=== PATIENT | male | born 2000 | race Caucasian/White ===

== ENCOUNTER 2022-10-17 14:03 | Emergency (ER) | payer OTHER ==
[~2022-10-17] VITALS: Ht 190.5 cm; Wt 95.3 kg
[2022-10-17] MEDS ORDERED: LIDOCAINE 1% INJ 20 ML VIAL INJ ONE (14:15)
[2022-10-17] MEDS ORDERED: TETANUS,DIPTH,PERTUSS P/F (BOOSTRIX) 0.5 ML VIAL IM ONE (14:15)
[2022-10-17] MEDS ORDERED: LIDOCAINE 1% INJ 20 ML VIAL ONE (14:18)
--- NOTE | 2022-10-17 14:18 | ED Integumentary General ---
General Chief Complaint: Laceration Stated Complaint: LT HAND LACERATION | CIRCULAR SAW Source: patient Exam Limitations: no limitations History of Present Illness Date Seen by Provider: Oct 17, 2022 Time Seen by Provider: 14:05 Initial Comments Patient is a 22-year-old male who presents to the emergency room with a chief complaint of laceration to the palm of his left hand. He is a [id number]-bqtc-cdkdrtfe male who was operating a circular saw when the saw slipped and went into the palmar aspect of the left hand at the base of the index finger. He states it bled significantly. He complains that his left index finger is "numb". He is able to move his index finger normally. He is able to flex against resistance. Normal strength. Last tetanus is unknown. No other complaints of illness or injury. Allergies to hydrocodone Timing/Duration: just prior to arrival Severity: moderate Location: hands (left) Possible Cause: other (circular saw injury) Allergies and Home Medications Allergies Coded Allergies: hydrocodone (Verified Allergy, Unknown, 10/17/22) Patient Home Medication List Home Medication List Reviewed: Yes Review of Systems Review of Systems Constitutional: see HPI Musculoskeletal: no symptoms reported Skin: other (laceration to palm of left hand) Physical Exam Vital Signs Vital Signs - First Documented 10/17/22 14:11 Pulse 100 Resp 20 B/P (MAP) 179/88 (118) Pulse Ox 100 O2 Delivery Room Air Capillary Refill : General Appearance: WD/WN, mild distress HEENT: PERRL/EOMI Cardiovascular: regular rate, rhythm Respiratory: lungs clear, normal breath sounds, no respiratory distress, no accessory muscle use Extremities: normal range of motion, other (Left hand, palmar surface for centimeter laceration across the base of the index finger. No active bleeding at presentation. No bony tenderness to the 2nd metacarpal of the left hand; sensation is diminished to the index finger only; patient has normal flexion of the index finger with resistance) Neurologic/Psychiatric: alert, normal mood/affect, oriented x 3 Skin: other (As above) Procedures/Interventions Wound Location: Upper Extremities Other Wound Location left hand palmar surface Wound Length (cm): 4 Wound's Depth, Shape: superficial, into muscle, linear, contused tissue Irrigated w/ Saline (ccs): 250 Betadine Prep?: No Anesthesia: 1% Lidocaine Volume Anesthetic (ccs): 4 Suture: Ethlion (4-0, 6), Monocryl (4-0, 2) Number of Sutures: 8 Layer Closure?: 2 Number Deep Layer Sutures: 2 Sterile Dressing Applied?: Yes Progress/Results/Core Measures Results/Orders My Orders Orders - LORRIE LAIRD MD Dipht,Pertuss(Acell),Tet Adult (Boostrix (10/17/22 14:15) Lidocaine 1% Inj 20 Ml (Xylocaine 1% Inj (10/17/22 14:15) Hand, Left, 3 Views (10/17/22 14:08) Lidocaine 1% Inj 20 Ml (Xylocaine 1% Inj (10/17/22 14:18) Medications Given in ED Current Medications Medications Dose Ordered Sig/Tobias Route Start Time Stop Time Status Last Admin Dose Admin Diphtheria/ Tetanus/Acell Pertussis 0.5 ml ONCE ONCE IM 10/17/22 14:15 10/17/22 14:16 DC 10/17/22 15:22 0.5 ML Lidocaine HCl 20 ml ONCE ONCE INJ 10/17/22 14:15 10/17/22 14:16 DC 10/17/22 14:20 20 ML Vital Signs/I&O 10/17/22 14:11 Pulse 100 Resp 20 B/P (MAP) 179/88 (118) Pulse Ox 100 O2 Delivery Room Air Diagnostic Imaging Diagonstic Imaging: Xray Comments [facility], [place] NAME: FIORDALIZA [facility]ONES [facility] REC#: [id number] PT STATUS: REG ER : 2000 PHYSICIAN: LORRIE LAIRD MD ADMIT DATE: 10/17/22/ER Draft Date of Exam:10/17/22 HAND, LEFT, 3 VIEWS Indication: Injury to left hand, laceration on saw. AP, oblique, and lateral views of the left hand obtained. No fracture or acute bony abnormality seen. There is no radiopaque foreign body. Joint spaces are unremarkable. Impression: No evidence of fracture or radiopaque foreign body. Dictated on workstation # [id number] Dict: 10/17/22 1505 Trans: 10/17/22 1508 CV [id number] Interpreted by: HANNY ARREGUIN MD Electronically signed by: Departure Impression Primary Impression: Laceration of left hand Qualified Codes: S61.412A - Laceration without foreign body of left hand, initial encounter Disposition: 01 HOME, SELF-CARE Condition: Stable Departure-Patient Inst. Decision time for Depature: 15:52 Referrals: [facility] [place] Patient Instructions: Laceration Repair With Stitches ED Add. Discharge Instructions: Keep the wound clean dry and covered for the first 24 hours. After this you can wash it gently with soap and water, use a mild soap and then after it is rinsed you can put a little triple antibiotic ointment over the stitches twice a day for a couple of days. After 2 or 3 days you can leave the stitches open to the air. Obviously cover them if you are doing anything that could contaminate the wound. Monitor the stitches for redness, swelling, increased pain or drainage. The stitches need to come out in 10 to 14 days. You can come back here to have them removed as it is a part of this visit or potentially Dr. Singer at the [facility] can remove them for you. Ulvb-dxl-qiyqxaz ibuprofen, 3 tablets which is 600 mg every 6 hours with food as needed for pain. Images Extremities-Upper 1 - Laceration LORRIE LAIRD MD Oct 17, 2022 14:18
--- NOTE | 2022-10-17 15:09 | Diagnostic Imaging Report ---
Indication: Injury to left hand, laceration on saw. AP, oblique, and lateral views of the left hand obtained. No fracture or acute bony abnormality seen. There is no radiopaque foreign body. Joint spaces are unremarkable. Impression: No evidence of fracture or radiopaque foreign body. Dictated by: Dictated on workstation # [id number]
[2022-10-17 16:06] VITALS: BP 147/82
== END 2022-10-17 16:06 | disposition home or self-care (01) ==
LOC: ER 14:11
DX: S61.412A Laceration without foreign body of left hand, initial encounter (principal); Z23 Encounter for immunization; W31.2XXA Contact with powered woodworking and forming machines, initial encounter
CPT/HCPCS: 12002; 73130; 90715